=== PATIENT | female | born 1995 | race Hispanic/Latino ===

== ENCOUNTER 2021-05-25 10:27 | Emergency (ER) | payer OTHER ==
[~2021-05-25] VITALS: Ht 157.5 cm; Wt 63.5 kg
[2021-05-25] MEDS ORDERED: ACETAMINOPHEN 500 MG TABLET PO ONE (11:00)
[2021-05-25 11:40] VITALS: BP 135/88
[2021-05-25] MEDS ORDERED: CYCLOBENZAPRINE HCL 10 MG TABLET PO ONE (13:30)
[2021-05-25] MEDS ORDERED: KETOROLAC 30MG VIAL (30MG/ML) IM ONE (13:30)
[2021-05-25] MEDS ORDERED: NAPR-1192 PO (13:56)
[2021-05-25] MEDS ORDERED: METH-662 PO (13:56)
== END 2021-05-25 14:01 | disposition home or self-care (01) ==
LOC: EDH 10:27
DX: S29.012A Strain of muscle and tendon of back wall of thorax, initial encounter (principal); M41.9 Scoliosis, unspecified; X58.XXXA Exposure to other specified factors, initial encounter; Y93.89 Activity, other specified; Y92.89 Other specified places as the place of occurrence of the external cause; Y99.8 Other external cause status
CPT/HCPCS: 72040; 72070; 81025; 96372; 99284; J1885